=== PATIENT | female | born 1960 | race Caucasian/White ===

== ENCOUNTER 2019-02-16 05:39 | Emergency (ER) | payer OTHER ==
[~2019-02-16] VITALS: Ht 170.2 cm; Wt 158.8 kg
[~2019-02-16 05:39] MED LIST: AMARYL4 MG PO; AMITRIPTYLINE H25 M2 PO; ATENOLOL 50MG T50 MG; CIPROFLOXACIN500 M1 PO; FISHOIL; FLAGYL500 MG PO; FLOMAX0.4 MG PO; GLIMEPIRIDE; HCTZ; LANTUSSOLASTAR; METFORMIN; NORCO 5-325 TA1 EACH PO; NOVOLOG100 UNIT/1 SUBQ; PERCOCET 5-3251 EACH PO; TRICOR; VASOTEC; ZOFRAN ODT4 MG PO
[2019-02-16 06:22] LABS: ABSOLUTE BASOPHILS 0.1 thou/uL (0.0-0.2); ABSOLUTE EOSINOPHILS 0.2 thou/uL (0.0-0.7); ABSOLUTE LYMPHOCYTES 3.4 thou/uL (0.8-5.3); ABSOLUTE MONOCYTES 1.5 thou/uL (0.0-1.2); ABSOLUTE NEUTROPHILS 5.3 thou/uL (1.6-8.1); EOSINOPHILS 2.1 %; HEMATOCRIT 41.4 % (37.0-47.0); HEMOGLOBIN 13.7 gm/dL (12.0-15.0); LYMPHOCYTES 32.5 %; MCH 29.6 pg (26.0-34.0); MCV 89.7 fL (80.0-100.0); MPV 8.7 fl. (7.2-11.1); NUCLEATED RBCS 0 /100WBC; PLATELET COUNT* 282 thou/uL (150-400); POLYS 50.4 %; RBC 4.62 mil/uL (4.20-5.00); RDW-CV 13.6 % (10.5-14.5); WBC 10.6 thou/uL (4.0-11.0)
[2019-02-16 06:31] LABS: INR 0.9; PROTIME 9.4 Seconds (9.20-11.50)
[2019-02-16 06:40] LABS: ANION GAP 11 mmol/L (7-16); BUN 38 mg/dL (7-18); CALCIUM 9.3 mg/dL (8.5-10.1); CHLORIDE 107 mmol/L (98-107); CO2 22 mmol/L (21-32); CREATININE 1.5 mg/dL (0.6-1.3); GLUCOSE 114 mg/dL (70-99); POTASSIUM 4.2 mmol/L (3.5-5.1); SODIUM 140 mmol/L (136-145); TROPONIN-I LEVEL <0.06 ng/mL (<0.06)
[2019-02-16 06:41] LABS: ALBUMIN 3.1 g/dL (3.4-5.0); ALKALINE PHOSPHATASE 84 U/L (46-116); LIPASE 297 U/L (73-393); NT-PRO BRAIN NAT PEPTIDE 121 pg/mL (<300); SGOT 16 U/L (15-37); SGPT 27 U/L (30-65); TOTAL BILIRUBIN 0.1 mg/dL (<0.1-1.0); TOTAL PROTEIN 7.1 g/dL (6.4-8.2)
[2019-02-16] MEDS ORDERED: ATENOLOL 50MG T50 M1 PO ×2 (07:43→07:45)
[2019-02-16] MEDS ORDERED: ZESTORETIC 20-1 EACH PO (07:43)
[2019-02-16] MEDS ORDERED: LISINOPRIL40 MG PO (07:45)
[2019-02-16 07:54] VITALS: BP 148/93
--- NOTE | 2019-02-16 14:39 | EKG ---
[place] [address] ELECTROCARDIOGRAM REPORT Name: NEFTALI LENNON Room: [facility]#: [id number] Admission: 02/16/19 Attend Phys: Discharge: 02/16/19 Date of : 60 Report #: [id number] THIS REPORT FOR: //name// [facility] ED Test Date: 2019-02-16 Test Time: 05:46:51 Pat Name: NEFTALI TEJEDA Department: Room: Gender: F Director Of [employer]: Valentín MARTINEZ : 1960 Requested By: James Alvarado Order Number: [id number] MD: Luis Matt Measurements Intervals [place] Rate: 158 P: MD: QRS: 142 QRSD: 132 T: 10 QT: 315 QTc: 511 Interpretive Statements Wide-QRS tachycardia, probably atrial fibrillation RBBB and LPFB Baseline wander in lead(s) V5 Compared to ECG 07/19/2011 10:22:40 Atrial fib is noted Left posterior fascicular block now present Right bundle-branch block now present Sinus rhythm no longer present Poor R-wave progression no longer present Electronically Signed On 02-16-2019 14:39:13 CDT by Luis Matt [email or web address] <ELECTRONICALLY SIGNED> By: Luis Matt MD, [facility] 02/16/19 1439 0546 [id number] Luis Matt MD, [facility] /EPI
--- NOTE | 2019-02-16 14:39 | EKG ---
[place] [address] ELECTROCARDIOGRAM REPORT Name: NEFTALI LENNON Room: [facility]#: [id number] Admission: 02/16/19 Attend Phys: Discharge: 02/16/19 Date of : 60 Report #: [id number] THIS REPORT FOR: //name// [facility] ED Test Date: 2019-02-16 Test Time: 07:22:26 Pat Name: NEFTALI TEJEDA Department: Room: Gender: F [employer] Department Manager: BASSAM : 1960 Requested By: Venkata Mack Order Number: [id number] MD: Luis Matt Measurements Intervals [place] Rate: 88 P: 32 MT: 156 QRS: 155 QRSD: 129 T: 28 QT: 393 QTc: 476 Interpretive Statements Sinus rhythm RBBB and LPFB Inferior infarct, old possible Compared to ECG 07/19/2011 10:22:40 Left posterior fascicular block now present Right bundle-branch block now present Myocardial infarct finding now present Poor R-wave progression no longer present Electronically Signed On 02-16-2019 14:39:34 CDT by Luis Matt [email or web address] <ELECTRONICALLY SIGNED> By: Lusi Matt MD, [facility] 02/16/19 1439 1 1 Luis Matt MD, [facility] /EPI
== END 2019-02-16 07:57 | disposition home or self-care (01) ==
LOC: M.ERS 05:39
PROVIDERS: Emergency Medicine
DX: R07.89 Other chest pain (principal); R00.0 Tachycardia, unspecified; Z76.0 Encounter for issue of repeat prescription; I10 Essential (primary) hypertension; E11.9 Type 2 diabetes mellitus without complications; Z88.4 Allergy status to anesthetic agent; Z88.1 Allergy status to other antibiotic agents; Z88.0 Allergy status to penicillin; Z88.2 Allergy status to sulfonamides; Z90.710 Acquired absence of both cervix and uterus; Z87.442 Personal history of urinary calculi; Z79.4 Long term (current) use of insulin